=== PATIENT | male | born 1945 | race Caucasian/White ===

== ENCOUNTER 2018-09-26 04:44 | Emergency (ER) | payer MEDICARE ==
[2018-09-26] MEDS ORDERED: SODIUM CHLORIDE 0.9% 1,000 ML IV ONE (05:07)
[2018-09-26] MEDS ORDERED: KETOROLAC 60 MG/2 ML VIAL IVP STA (05:07)
[2018-09-26 05:09] VITALS: BP 149/71
--- NOTE | 2018-09-26 05:11 | ED Physician Documentation ---
PD HPI ABD PAIN - Stated complaint Stated Complaint: LRQ ABDOMINAL PAIN - Chief complaint Chief Complaint: Abd Pain - History obtained from History obtained from: Patient - History of Present Illness Timing - onset: How many hours ago (2) Timing - details: Abrupt onset, Still present, Waxing and waning Pain level max: 8 Pain level now: 5 Quality: Dull Location: RLQ Radiation: Right flank Improved by: Other (Nothing) Worsened by: Other (Nothing) Associated symptoms: No: Fever, Nausea, Vomiting, Hematemesis, Diarrhea, Constipation, Melena, Hematochezia, Dysuria, Hematuria, Chest pain, Dizzy, Near syncope / syncope Similar symptoms before: Has not had sx before Recently seen: Not recently seen - Additional information Additional information: 72-year-old male with history of kidney stone 20 years ago but no surgical history here with complaint of right lower quadrant pain that radiates to his right flank which woke him up at 3:00 this morning. The pain was 8-1/2 which is waxing and waning it is currently 5/10. Denies any associated symptoms. Denies any trauma, travel or recent illness. He stated he went to bed well his last meal was dinner left over turkey. Review of Systems Ten Systems: 10 systems reviewed and negative Constitutional: denies: Fever, Myalgias Cardiac: denies: Chest pain / pressure Respiratory: denies: Dyspnea GI: reports: Abdominal Pain. denies: Nausea, Vomiting, Constipation, Diarrhea : denies: Dysuria, Frequency, Hematuria Musculoskeletal: denies: Back pain PD PAST MEDICAL HISTORY - Past Surgical History Past Surgical History: No - Present Medications Home Medications: Ambulatory Orders Medication Instructions Recorded Confirmed Hydrocodone/Acetaminophen 1 each PO Q6H #12 tablet 09/26/18 [Hydrocodone-Acetamin 5-325 mg] Ondansetron Odt [Zofran] 4 mg TL Q6H PRN #10 tablet 09/26/18 Tamsulosin HCl [Flomax] 0.4 mg PO DAILY #6 cap.er.24h 09/26/18 - Allergies Allergies/Adverse Reactions: Allergies Allergy/AdvReac Type Severity Reaction Status Date / Time No Known Drug Allergies Allergy Verified 09/26/18 04:54 - Social History Does the pt smoke?: No Smoking Status: Never smoker Does the pt drink ETOH?: No Does the pt have substance abuse?: No - Immunizations Immunizations are current?: Yes PD ED PE NORMAL - Vitals Vital signs reviewed: Yes - General General: Alert and oriented X 3, No acute distress, Well developed/nourished - HEENT HEENT: EOMI, Moist mucous membranes, Pharynx benign - Neck Neck: Supple, no meningeal sign - Cardiac Cardiac: RRR, No murmur - Respiratory Respiratory: No respiratory distress, Clear bilaterally - Abdomen Abdomen: Normal bowel sounds, Soft, Non distended, Other (Mild right lower quadrant tenderness. No rebound, guarding or rigidity.) - Back Back: No CVA TTP, No spinal TTP - Derm Derm: Normal color, Warm and dry - Extremities Extremities: No deformity - Neuro Neuro: Alert and oriented X 3 - Psych Psych: Normal mood, Normal affect Results - Vitals Vitals: Vital Signs - 24 hr 09/26/18 09/26/18 04:51 05:05 Heart Rate 52 L 56 L Respiratory 17 18 Rate Blood Pressure 153/76 H 149/71 H O2 Saturation 100 99 Oxygen O2 Source Room air - Labs Labs: Laboratory Tests 09/26/18 09/26/18 09/26/18 05:00 05:00 05:58 WBC 6.0 RBC 5.11 Hgb 16.0 Hct 48.6 MCV 95.2 H MCH 31.4 H MCHC 33.0 RDW 14.0 Plt Count 240 MPV 8.0 Neut # (Auto) 3.2 Lymph # (Auto) 2.0 Piatt # (Auto) 0.7 Eos # (Auto) 0.2 Baso # (Auto) 0.0 Absolute Nucleated RBC 0.00 Nucleated RBC % 0.0 Sodium 139 Potassium 3.7 Chloride 102 Carbon Dioxide 25 Anion Gap 12.0 BUN 27 H Creatinine 1.2 Estimated GFR (MDRD) 60 L Glucose 167 H Calcium 9.5 Total Bilirubin 0.9 AST 20 ALT 27 Alkaline Phosphatase 48 Total Protein 7.5 Albumin 4.7 Globulin 2.8 Albumin/Globulin Ratio 1.7 Lipase 30 Urine Color YELLOW Urine Clarity CLEAR Urine pH 6.0 Ur Specific [place] 1.020 Urine Protein NEGATIVE Urine Glucose (UA) NEGATIVE Urine Ketones NEGATIVE Urine Occult Blood LARGE H Urine Nitrite NEGATIVE Urine Bilirubin NEGATIVE Urine Urobilinogen 0.2 (NORMAL) Ur Leukocyte Esterase NEGATIVE Urine RBC TNTC H Urine WBC 0-3 Ur Squamous Epith Cells NONE SEEN Urine Bacteria None Seen Ur Microscopic Review INDICATED Urine Culture Comments NOT INDICATED PD MEDICAL DECISION MAKING - ED course Complexity details: reviewed results, re-evaluated patient, considered differential (Appendicitis, kidney stone, colitis, UTI), d/w patient, d/w family ED course: 03 17 patient states pain is decreased after Toradol shot. Inform of lab results. Awaiting For patient to give us urine specimen and for CT scan to be done.[id number] resting comfortably does not appear to be in any distress. Inform of CT scan results showing a right kidney stone in the ureter. Patient states he has a urologist that he can follow-up with. We will discharge him on Flomax, hydrocodone, Zofran. Patient stated that he probably will need the hydrocodone because he has high tolerance to pain and will take [id number] Tylenol or Motrin. Departure - Departure Disposition: Home, Self Care Clinical Impression: Kidney stone on right side Condition: Stable Instructions: ED Strainer Urine, ED Stone Renal W Colic Prescriptions: Hydrocodone/Acetaminophen [Hydrocodone-Acetamin 5-325 mg] 1 each PO Q6H #12 tablet Ondansetron Odt [Zofran] 4 mg TL Q6H PRN #10 tablet PRN Reason: Nausea / Vomiting Tamsulosin HCl [Flomax] 0.4 mg PO DAILY #6 cap.er.24h Comments: Strain your urine with a strainer that we gave in the emergency room. Take the medication as prescribed. Maintain safety when taking hydrocodone. Drink 6-8 glasses of water a day. Prevent constipation from hydrocodone by drinking the water, eating high-fiber foods and taking [id number] stool softener. Follow-up with your primary doctor and get a referral to a urologist next week. If worse return to the emergency room.
[2018-09-26 05:31] LABS: BASOPHILS % (AUTO) 0.8 %; EOSINOPHILS # (AUTO) 0.2 10^3/uL (0.0-0.7); EOSINOPHILS % (AUTO) 3.2 %; LYMPHOCYTES % (AUTO) 32.4 %; MEAN CORPUSCULAR HEMOGLOBIN 31.4 pg (27.0-31.0); MEAN CORPUSCULAR VOLUME 95.2 fL (80.0-94.0); MONOCYTES # (AUTO) 0.7 10^3/uL (0.0-1.0); NEUTROPHILS # (AUTO) 3.2 10^3/uL (1.5-6.6); NEUTROPHILS % (AUTO) 52.6 %; PLT - PLATELET COUNT 240 10^3/uL (130-450); RED BLOOD COUNT 5.11 10^6/uL (4.70-6.10)
[2018-09-26 05:45] LABS: ALBUMIN 4.7 g/dL (3.2-5.5); ALBUMIN/GLOBULIN RATIO 1.7 (1.0-2.2); BILIRUBIN,TOTAL 0.9 mg/dL (0.2-1.0); CALCIUM 9.5 mg/dL (8.5-10.3); CREATININE 1.2 mg/dL (0.6-1.2); TOTAL PROTEIN 7.5 g/dL (6.7-8.2)
[2018-09-26] MEDS ORDERED: IOVERSOL 320 100 ML VIAL IVP ONE ×2 (05:56→06:35)
[2018-09-26 06:10] LABS: BILIRUBIN,URINE NEGATIVE (NEGATIVE); GLUCOSE, URINE (UA) NEGATIVE (NEGATIVE); KETONES,URINE (UA) NEGATIVE (NEGATIVE); LEUKOCYTE ESTERASE, URINE NEGATIVE (NEGATIVE); NITRITE,URINE NEGATIVE (NEGATIVE); OCCULT BLOOD,URINE LARGE (NEGATIVE); PROTEIN,URINE NEGATIVE (NEGATIVE); UROBILINOGEN,URINE 0.2 (NORMAL) E.U./dL (NORMAL)
[2018-09-26 06:14] LABS: CLARITY,URINE CLEAR (CLEAR)
[2018-09-26 06:22] LABS: BACTERIA,URINE None Seen /HPF (None Seen); RBC,URINE TNTC /HPF (0-5); SQUAMOUS EPITHELIAL CELL,UR NONE SEEN (<= Few)
--- NOTE | 2018-09-26 06:42 | CT Report ---
Reason: RLQ pain Procedure Date: 09/26/2018 Accession Number: [id number] / [id number] Procedure: CT - Abdomen/Pelvis W/ CPT Code: FULL RESULT: EXAM: CT ABDOMEN AND PELVIS EXAM DATE: 09/26/2018 06:06 AM. CLINICAL HISTORY: RLQ pain. COMPARISONS: None. TECHNIQUE: Routine helical CT imaging was performed through the abdomen and pelvis. IV contrast: OPTIRAY 320 100mL. Enteric contrast: No. Reconstructions: Coronal and sagittal. In accordance with CT protocol optimization, one or more of the following dose reduction techniques were utilized for this exam: automated exposure control, adjustment of mA and/or KV based on patient size, or use of iterative reconstructive technique. FINDINGS: Lung Bases: Unremarkable. Liver: Incidental cysts. No solid hepatic lesion or intrahepatic biliary dilatation. Gallbladder/Bile Ducts: Unremarkable. Spleen: Normal. Pancreas: Normal. Adrenal Glands: Normal. Kidneys: Mild right hydronephrosis and proximal hydroureter, with a 4 mm calculus in the right ureter at the level of the inferior endplate of L4. Cortical cysts. Peritoneal Cavity/Bowel: Normal. No free fluid, free air or adenopathy. No masses or acute inflammatory process. The appendix is well visualized and normal. Pelvic Organs: Normal. The bladder and visualized pelvic organs are within normal limits. Vasculature: No aneurysms or other significant abnormality. Bones: No significant abnormality. Other: None. IMPRESSION: 4 mm calculus in the right ureter, producing right hydronephrosis. Normal appendix. RADIA
[2018-09-26] MEDS ORDERED: TAMSULOSIN 0.4 MG CAPSULE PO STA (07:04)
== END 2018-09-26 07:45 | disposition home or self-care (01) ==
LOC: ED 04:44
DX: N20.0 Calculus of kidney (principal)
CPT/HCPCS: 36415; 74177; 80053; 81001; 83690; 85025; 96361; 96374; 99283; 99284; A9270; Q9967; 81003; 87086

== ENCOUNTER 2018-09-28 03:49 | Emergency (ER) | payer MEDICARE ==
--- NOTE | 2018-09-28 04:16 | ED Physician Documentation ---
PD HPI ABD PAIN - Stated complaint Stated Complaint: RT LOWER ABDOMINAL PAIN - Chief complaint Chief Complaint: Abd Pain - History obtained from History obtained from: Patient - History of Present Illness Timing - onset: How many days ago (2) Timing - duration: Days (2) Timing - details: Abrupt onset, Still present (He was diagnosed with a kidney stone based on CT scan with mild hydronephrosis visit to the ER yesterday. He was discharged with hydrocodone tablets and states the pain control is inadequate with this medication. He has not had any fevers. He has a feeling of pressure in the bladder but still states he is urinating.) Quality: Aching, Sharp, Pain Location: RLQ, Suprapubic Radiation: Right flank Improved by: No: Eating, Laying still, Meds Worsened by: No: Eating, Moving Associated symptoms: No: Fever, Nausea, Diarrhea, Dysuria, Hematuria, Near syncope / syncope Recently seen: Emergency Dept (yesterday, Dx with right 4 mm ureterolithiasis.) Review of Systems Constitutional: denies: Fever, Chills Nose: denies: Rhinorrhea / runny nose, Congestion Throat: denies: Sore throat Cardiac: denies: Chest pain / pressure Respiratory: denies: Dyspnea, Cough GI: reports: Abdominal Pain, Nausea. denies: Vomiting, Constipation, Diarrhea : denies: Dysuria, Frequency Neurologic: denies: Generalized weakness, Near syncope, Altered mental status PD PAST MEDICAL HISTORY - Past Medical History Cardiovascular: None Respiratory: None Neuro: None Endocrine/Autoimmune: None - Past Surgical History Past Surgical History: No - Present Medications Home Medications: Ambulatory Orders Medication Instructions Recorded Confirmed Hydrocodone/Acetaminophen 1 each PO Q6H #12 tablet 09/26/18 [Hydrocodone-Acetamin 5-325 mg] Ondansetron Odt [Zofran] 4 mg TL Q6H PRN #10 tablet 09/26/18 Tamsulosin HCl [Flomax] 0.4 mg PO DAILY #6 cap.er.24h 09/26/18 Dexamethasone [Decadron] 4 mg PO DAILY #5 tablet 09/28/18 Naproxen 375 mg PO BID #20 tablet 09/28/18 Oxycodone HCl/Acetaminophen 1 each PO Q4H PRN #20 tablet 09/28/18 [Percocet 7.5-325 mg Tablet] - Allergies Allergies/Adverse Reactions: Allergies Allergy/AdvReac Type Severity Reaction Status Date / Time No Known Drug Allergies Allergy Verified 09/28/18 04:02 - Social History Does the pt smoke?: No Smoking Status: Never smoker Does the pt drink ETOH?: No Does the pt have substance abuse?: No - Immunizations Immunizations are current?: Yes PD ED PE NORMAL - Vitals Vital signs reviewed: Yes - General General: Alert and oriented X 3, Well developed/nourished, Other (appears uncomfortable) - Neck Neck: Supple, no meningeal sign, No adenopathy - Cardiac Cardiac: RRR, No murmur - Respiratory Respiratory: Clear bilaterally - Abdomen Abdomen: Normal bowel sounds, Soft, Non distended, No organomegaly, Other (tender without guarding RLQ and suprapubic area. Bladder scanner showed 44 ml residual post void) - Male Male : Deferred - Back Back: Other (mild right CVA tenderness) - Derm Derm: Normal color, Warm and dry - Neuro Neuro: Alert and oriented X 3, No motor deficit, Normal speech Results - Vitals Vitals: Vital Signs - 24 hr 09/28/18 09/28/18 03:59 06:23 Temperature 36.6 C Heart Rate 63 60 Respiratory 16 16 Rate Blood Pressure 142/62 H 123/66 O2 Saturation 97 94 Oxygen O2 Source Room air - Labs Labs: Laboratory Tests 09/28/18 05:25 Urine Color YELLOW Urine Clarity CLEAR Urine pH 5.5 Ur Specific [place] 1.025 Urine Protein NEGATIVE Urine Glucose (UA) NEGATIVE Urine Ketones 15 H Urine Occult Blood LARGE H Urine Nitrite NEGATIVE Urine Bilirubin NEGATIVE Urine Urobilinogen 0.2 (NORMAL) Ur Leukocyte Esterase NEGATIVE Urine RBC 11-25 H Urine WBC 0-3 Ur Squamous Epith Cells NONE SEEN Urine Bacteria None Seen Ur Microscopic Review INDICATED Urine Culture Comments NOT INDICATED PD MEDICAL DECISION MAKING - ED course Complexity details: reviewed old records, reviewed results, re-evaluated patient (pain improved enough after meds in ED. ), considered differential (given parenteral meds here and will increase oral meds outpt. ), d/w patient Departure - Departure Disposition: 01 Home, Self Care Clinical Impression: Kidney stone on right side Abdominal pain Qualifiers: Abdominal location: lower abdomen, unspecified Qualified Code(s): R10.30 - Lower abdominal pain, unspecified Condition: Stable Record reviewed to determine appropriate education?: Yes Instructions: ED Stone Renal W Colic Follow-Up: Brandon Travis MD [Primary Care Provider] - Prescriptions: Dexamethasone [Decadron] 4 mg PO DAILY #5 tablet Naproxen 375 mg PO BID #20 tablet Oxycodone HCl/Acetaminophen [Percocet 7.5-325 mg Tablet] 1 each PO Q4H PRN #20 tablet PRN Reason: Pain Comments: Stay well-hydrated. Use anti-inflammatories of naproxen or ibuprofen twice daily for the next several days to week. Also steroid anti-inflammatory Decadron daily for the next few days. Continue the tamsulosin (Flomax) daily until stone passes. Use oxycodone if needed for pain. Recheck or follow-up if not resolved over the next several days. Discharge Date/Time: 09/28/18 06:39
[2018-09-28] MEDS ORDERED: oxyCODONE/ACET 5/325 Prepack 4 PO STA (04:55)
[2018-09-28] MEDS ORDERED: DEXAMETHASONE 10 MG/ML VIAL PO STA (04:55)
[2018-09-28] MEDS ORDERED: KETOROLAC 30 MG/ML VIAL IM STA (04:55)
[2018-09-28] MEDS ORDERED: HYDROmorphone 1 MG/ML CARPUJECT IM STA (04:55)
[2018-09-28] MEDS ORDERED: KETOROLAC 60 MG/2 ML VIAL IVP STA (05:32)
[2018-09-28] MEDS ORDERED: HYDROmorphone 1 MG/ML CARPUJECT IVP STA (05:32)
[2018-09-28] MEDS ORDERED: DEXAMETHASONE 10 MG/ML VIAL IVP STA (05:33)
[2018-09-28 05:39] LABS: BILIRUBIN,URINE NEGATIVE (NEGATIVE); GLUCOSE, URINE (UA) NEGATIVE (NEGATIVE); KETONES,URINE (UA) 15 mg/dL (NEGATIVE); LEUKOCYTE ESTERASE, URINE NEGATIVE (NEGATIVE); NITRITE,URINE NEGATIVE (NEGATIVE); OCCULT BLOOD,URINE LARGE (NEGATIVE); PH,URINE 5.5 PH (5.0-7.5); PROTEIN,URINE NEGATIVE (NEGATIVE); UROBILINOGEN,URINE 0.2 (NORMAL) E.U./dL (NORMAL)
[2018-09-28 05:45] LABS: CLARITY,URINE CLEAR (CLEAR)
[2018-09-28 05:46] LABS: BACTERIA,URINE None Seen /HPF (None Seen); SQUAMOUS EPITHELIAL CELL,UR NONE SEEN (<= Few)
[2018-09-28 06:26] VITALS: BP 123/66
== END 2018-09-28 06:39 | disposition home or self-care (01) ==
LOC: ED 03:49
DX: N20.0 Calculus of kidney (principal)
CPT/HCPCS: 81001; 96372; 99283; J1170; 81003; 87086